=== PATIENT | female | born 1965 | race Two or more races ===

== ENCOUNTER 2020-08-10 05:30 | Day surgery (SDC) | payer OTHER ==
[2020-08-10] MEDS ORDERED: DUI500 PO (09:18)
[2020-08-10] MEDS ORDERED: ULTRACET PO (09:18)
== END 2020-08-10 12:55 | disposition home or self-care (01) ==
LOC: CIR.AMB 05:30
PROVIDERS: ATTEND Orthopaedic Surgery Sports Medicine
DX: M23.351 Other meniscus derangements, posterior horn of lateral meniscus, right knee (principal); M65.861 Other synovitis and tenosynovitis, right lower leg; M23.41 Loose body in knee, right knee